=== PATIENT | male | born 1960 | race Caucasian/White ===

== ENCOUNTER 2018-05-04 14:42 | Emergency (ER) | payer MEDICAID, OTHER ==
[2018-05-04] MEDS ORDERED: CLINDAMYCIN 600 MG INJ IM (16:30)
[2018-05-04] MEDS: CLINDAMYCIN 300 MG INJ IM (16:39)
== END 2018-05-04 17:15 | disposition home or self-care (01) ==
LOC: FTE 14:42
DX: K04.7 Periapical abscess without sinus (principal)
CPT/HCPCS: 96372; 99284-25